=== PATIENT | female | born 1940 | race Caucasian/White ===

== ENCOUNTER 2018-04-05 08:44 | Inpatient (IN) ==
--- NOTE | 2018-03-29 09:19 | Anesthesiology Consultation ---
Date of Service March 29, 2018 Assessment & Plan (1) Encounter for pre-operative examination: Plan: PCP clearance 04/01/2018: No contraindication for planned left knee replacement, she is deemed medically stable and below average surgical risk for her age is typically in very good health. Chart Review Chart Review: Acceptable Risk for Surgery and Patient seen in Pre Admission Testing Teaching & Discussion Instructed NPO after midnight before surgery, except medications with 15 cc of water. Medication instructions provided according to the PAT guidelines. History Surgery Operation Date: 04/05/18 11:30 Proposed Procedures p Left Total Knee Arthroplasty - Oleg Bridges MD Height/Weight Height: 5 ft 1 in Weight: 62 kg Allergies Allergy/AdvReac Type Severity Reaction Status Date / Time No Known Allergies Allergy Unknown Verified 03/26/18 15:51 Medications Home Medications Medication Instructions Recorded Confirmed Last Taken Meclizine 1 dose PO UD PRN 03/26/18 03/26/18 Unknown aspirin [Aspir-81] 81 mg PO DAILY 03/26/18 03/26/18 03/23/18 cyanocobalamin (vitamin B-12) 1,000 mcg PO 3XWK 03/26/18 03/26/18 03/26/18 [Vitamin B-12] [id number]-poc-pydzpen-ast 1 cap PO DAILY 03/26/18 03/26/18 03/26/18 [krill oil] naproxen sodium [Aleve] 220 mg PO UD PRN 03/26/18 03/26/18 Unknown vit C,K-Gp-amgyu-lutein-zeaxan 1 tab PO BID 03/26/18 03/26/18 03/26/18 [PreserVision AREDS-2] Past Medical History Medical History Claustrophobia REQUESTS NO MASK OVER FACE History of vertigo Osteoarthritis Past Family History Family History Sister Family history of melanoma Daughter Family history of breast cancer Past Surgical History Surgical History History of bilateral cataract extraction History of colonoscopy with polypectomy History of total left hip arthroplasty History of total right knee replacement Past Anesthesia History No Hx of Anesthesia Complications and No Family Hx of Anesthesia Complications 2014 BRITTANY @ [facility], SAB x 2 attempts, no complications per record. History of PONV No Motion Sickness Screening History of Motion Sickness: Yes (vertigo) Social History Smoking Status: Never smoker Do You Dip or Chew Tobacco: No Hx Alcohol Use: No Hx Substance Use: No substance use type: does not use Exercise / Class Metabolic Activity III < 4 Walking/Shop/Light housework (Denies CP or SOB with ambulation, unable to do stairs 2/2 knee pain) Review of Systems Pt denies any recent chest pain, shortness of breath, palpitations, cough, fever or URI. Physical Exam Vital Signs BP: 144/73 (pt takes BP at home and and reports usually 110/70) P: 74bpm SPO2: 98% RA T: 98.0 F R: 12 ENMT Mouth: + dental bridge (lower left rear teeth); no chipped teeth and no loose teeth Thyromental Distance: > or= 3.5 Finger Breadths (4) Mallampati Class: III Neck normal visual inspection; neck extension not limited Respiratory normal respiratory effort Auscultation: lungs clear to auscultation bilaterally Cardiovascular Rate/Rhythm: regular rate and regular rhythm Heart Sounds: no murmur Vessels: no carotid bruit Extremities: no edema Testing Electrocardiogram Date: 03/29/18 Findings: + NSR @ (68) Chest X-Ray Date: 03/29/18 Hyperinflation with suspected underlying chronic interstitial lung disease. No acute findings. Laboratory Results 03/29/18 09:46 03/29/18 09:46 Blood Type O Positive 03/29/18 09:46 Antibody Screen NEGATIVE 03/29/18 09:46 PT 10.5 Seconds (9.0-12.0) 03/29/18 09:46 INR 1.0 (0.9-1.1) 03/29/18 09:46 APTT 26.8 Seconds (21.0-31.0) 03/29/18 09:46 Hemoglobin A1c 5.6 % (4.5-5.6) 03/29/18 09:46 Urine Color Yellow 03/29/18 Unknown Urine Appearance Clear (Clear) 03/29/18 Unknown Urine pH 6.5 (4.5-7.5) 03/29/18 Unknown Ur Specific [place] 1.013 (1.000-1.030) 03/29/18 Unknown Urine Protein Negative (Negative) 03/29/18 Unknown Urine Glucose (UA) Negative (Negative) 03/29/18 Unknown Urine Ketones Negative (Negative) 03/29/18 Unknown Urine Nitrite Negative (Negative) 03/29/18 Unknown Ur Leukocyte Esterase Trace (Negative) H 03/29/18 Unknown Urine WBC (Auto) 1-5 /hpf (0-5) 03/29/18 Unknown Urine RBC (Auto) 0-4 /hpf (0-4) 03/29/18 Unknown U Hyaline Cast (Auto) 0 /lpf (0-5) 03/29/18 Unknown U Epithel Cells (Auto) 5-10 /lpf (0-5) H 03/29/18 Unknown Urine Bacteria (Auto) Negative (Negative) 03/29/18 Unknown 03/29/18 09:46 Urine Culture - Final Urine,Clean Catch More than three types of organisms present, all moderate counts mixed probable skin denisse. No further identifications or sensitivities to follow.
--- NOTE | 2018-03-29 09:37 | PAT Medication Instructions ---
Medication Instructions Date of Service March 29, 2018 Home Medications Meclizine 1 dose PO UD PRN aspirin [Aspir-81] 81 mg PO DAILY cyanocobalamin (vitamin B-12) 1,000 mcg PO 3XWK krill-om-3 1 cap PO DAILY naproxen sodium [Aleve] 220 mg PO UD PRN [PreserVision AREDS-2] 1 tab PO BID ASK your surgeon for instructions naproxen sodium [Aleve] 220 mg PO UD PRN STOP taking 2 weeks before surgery krill-om-3 1 cap PO DAILY [PreserVision AREDS-2] 1 tab PO BID *If surgery is within 2 weeks, stop taking as soon as possible. DO NOT take the morning of surgery cyanocobalamin (vitamin B-12) 1,000 mcg PO 3XWK Take morning of surgery With a small sip of water, OTHERWISE NOTHING TO EAT OR DRINK AFTER MIDNIGHT: Meclizine 1 dose PO UD PRN (if needed) aspirin [Aspir-81] 81 mg PO DAILY Other Notes If you have any questions please call us at [phone] or [phone] or [phone] or [phone]
--- NOTE | 2018-03-29 10:20 | XRay Report ---
XR chest Pre-admission PA/Lat CLINICAL HISTORY: Preoperative chest COMPARISON STUDY: 03/28/2014 FINDINGS: The patient appears mildly hyperinflated. There is suspected underlying interstitial lung d isease. There is no acute parenchymal consolidation. There is no failure. There are no pleural effusi ons. IMPRESSION: Hyperinflation with suspected underlying chronic interstitial lung disease. No acute find ings Electronically signed by: Jm Bustamante M.D. 03/29/2018 10:18 AM
[2018-03-29 10:55] LABS: Basophils # (auto) 0.02 K/uL (0-0.2); Basophils % (auto) 0.5 %; Eosinophils # (auto) 0.31 K/uL (0-0.5); Eosinophils % (auto) 7.8 %; Hematocrit (blood only) 39.2 % (37-47); Hemoglobin 12.8 g/dL (12.0-16.0); Immature Granulocytes # (auto) 0.01 K/uL (0.00-0.02); Immature Granulocytes % (auto) 0.3 %; Lymphocytes # (auto) 0.72 K/uL (1.2-3.4); Mean Corpuscular Hgb Conc 32.7 g/dL (32-36); Mean Corpuscular Volume 96.1 fL (80-100); Mean Platelet Volume 11.7 fL (7.4-10.4); Monocytes # (auto) 0.28 K/uL (0.11-0.59); Neutrophils # (auto) 2.65 K/uL (1.4-6.5); Neutrophils % (auto) 66.4 %; Platelet Count 138 K/uL (130-400); RDW Coefficient of Variation 12.7 % (11.5-14.5); RDW Standard Deviation 44.2 fL (36.4-46.3); Red Blood Count 4.08 M/uL (4.2-5.4); White Blood Count 3.99 K/uL (4.8-10.8)
[2018-03-29 11:00] LABS: Estimated Average Glucose 114 mg/dl
[2018-03-29 11:02] LABS: Albumin Level 3.5 gm/dl (3.4-5.0); BUN Creatinine Ratio 25.3 (10-20); Calcium 8.9 mg/dl (8.5-10.1); Creatinine Clr Calc Pharmacy 69.9 ml/min; Est GFR (African American) 103.5; Est GFR (Non-African American) 89.3; Potassium 4.3 mmol/L (3.5-5.1)
[2018-03-29 11:19] LABS: Appearance Urine Clear (Clear); Bacteria Urine Automated Negative (Negative); Bilirubin Urine Negative (Negative); Cast Urine Automated 0 /lpf (0-5); Color Urine Yellow; Glucose Urine UA Negative (Negative); Ketones Urine Negative (Negative); Leukocyte Esterase Urine Trace (Negative); Nitrite Urine Negative (Negative); Protein Urine Negative (Negative); Specific Gravity Urine 1.013 (1.000-1.030); Urobilinogen Urine Negative (Negative); pH Urine 6.5 (4.5-7.5)
[2018-03-29 11:26] LABS: Partial Thromboplastin Time 26.8 Seconds (21.0-31.0); Prothrombin Time 10.5 Seconds (9.0-12.0)
--- NOTE | 2018-04-02 10:55 | History and Physical Report ---
DATE OF ADMISSION: 04/05/2018 CHIEF COMPLAINT: Left knee pain. HISTORY OF PRESENT ILLNESS: The patient is a 77-year-old female with known severe osteoarthritis about her left knee. She had a previous right total knee arthroplasty with good success. She continues to have ongoing pain and disability with her left knee. She has pain with prolonged weightbearing and standing activities. She has difficulty with any kneeling, bending, or squatting activities. Due to ongoing pain and disability, she now desires to proceed with left total knee arthroplasty. PAST MEDICAL HISTORY: Denies. PAST SURGICAL HISTORY: Right knee replacement, left hip replacement. MEDICATIONS: PreserVision twice daily, vitamin B12 three times weekly, low-dose aspirin daily, omega-3 Krill oil daily, Aleve as needed, meclizine as needed. ALLERGIES: No known drug allergies. SOCIAL HISTORY AND REVIEW OF SYSTEMS: Noncontributory. PHYSICAL EXAMINATION: GENERAL: Well-nourished, well-developed elderly female who appears stated age. HEENT: Normocephalic, atraumatic, extraocular movements intact, oropharynx pink and moist. NECK: Supple without adenopathy. LUNGS: Clear to auscultation bilaterally. HEART: Regular rate and rhythm. ABDOMEN: Soft, nontender, nondistended. EXTREMITIES: The upper extremities are within normal limits. The left knee has a valgus alignment. Her range of motion is from 0-130 degrees. X-RAYS: X-rays were reviewed. She has a valgus aligned knee. She has bone on bone arthritis of the lateral compartment with complete loss of the joint space. There are lateral joint line osteophytes. There is mild degenerative change about the patellofemoral joint as well. ASSESSMENT: Left knee degenerative joint disease. PLAN: Risks versus benefits were discussed, consent was obtained. The patient's primary care physician is Dr. Bowens from [facility]. Will proceed with left total knee arthroplasty as indicated.
[~2018-04-05 08:44] MED LIST: ACETAMINOPHEN 500 MG TAB PO SCH; BUPIVACAINE 0.5 % 5 MG/1 ML PF 10ML VIAL ONE; BUPIVACAINE/EPINEPHRINE 0.5% MPF 1:200,000 30 ML VIAL ONE; CEFAZOLIN 1000MG 1,000 MG/7.5 ML SYR IV SCH; CeleBREX 200 MG CAP PO SCH; DEXAMETHASONE SOD INJ 4 MG/ML VIAL ONE; EPINEPHrine INJ 1 MG/ML AMP ONE; FAMOTIDINE 20 MG TAB PO SCH; GABAPENTIN 300 MG PO SCH; ROPIVACAINE 0.5% 5 MG/ML 30 ML VIAL ONE; ROPIVACAINE 0.5% HCL/PF 150 MG, BUPIVACAINE 0.5% MPF 30 ML, EPINEPHrine 30MG/30ML (OR U... INFIL SCH; TRANEXAMIC ACID 1,000 MG **IV Intra-op IV SCH; TRANEXAMIC ACID 1,000 MG **IV Pre-op IV SCH; dexAMETHasone 4 MG TAB PO SCH
[2018-04-05] MEDS ORDERED: fentaNYL citrate 100 MCG/2 ML VIAL ONE (09:28)
[2018-04-05] MEDS ORDERED: MIDAZOLAM HCL 1 MG/ML 2ML VIAL ONE (09:28)
[2018-04-05] MEDS: LR 500ML BOLUS, THEN 15ML/HR IV SCH ×4 (09:35→18:23)
[2018-04-05] MEDS ORDERED: MEPERIDINE HCL 25 MG/ML CARP IV PRN (10:02)
[2018-04-05] MEDS ORDERED: ATROPINE SULFATE 0.1 MG/ML 10ML SYR IV PRN (10:02)
[2018-04-05] MEDS ORDERED: HYDROmorphone INJ 1 MG/ML SYRINGE IV PRN (10:02)
[2018-04-05] MEDS ORDERED: PHENYLEPHRINE 100MCG/ML 5ML SYR IV PRN (10:02)
[2018-04-05] MEDS ORDERED: LABETALOL HCL IV 5 MG/ML 20ML IV PRN (10:02)
[2018-04-05] MEDS ORDERED: fentaNYL citrate 100 MCG/2 ML VIAL IV PRN (10:02)
[2018-04-05] MEDS ORDERED: ePHEDrine sulfate 50 MG/ML AMP IV PRN (10:02)
[2018-04-05] MEDS ORDERED: ONDANSETRON INJ 2 MG/ML 2 ML VIAL IV PRN ×2 (10:02→15:26)
--- NOTE | 2018-04-05 10:12 | History & Physical Bridge Note ---
Date of Service April 05, 2018 History & Physical Bridge Note I have examined the patient, reviewed the History & Physical and in the interval since the performance of the History & Physical I have noted the following changes of clinical significance: no changes noted
[2018-04-05] MEDS ORDERED: POVIDONE-IODINE OP SOLN 30 ML BTL ONE (10:41)
[2018-04-05] MEDS ORDERED: ORTHO JOINT ANESTHETIC ONE (10:41)
[2018-04-05] MEDS ORDERED: BACITRACIN INJ 50,000 UNIT VIAL ONE (10:42)
[2018-04-05] MEDS ORDERED: LACTATED RINGER'S 1,000 ML IV SCH (11:00)
--- NOTE | 2018-04-05 11:31 | Operative Report ---
Post Operative Report Pre & Post Diagnosis DJD knee l Operation Date: 04/05/18 11:30 <No data on this case meets the specified criteria> Procedure Left total knee Operation Date: 04/05/18 11:30 <No data on this case meets the specified criteria> Surgeon Oleg Bridges MD Seating And Mobility Technologist Tk Estimated Blood Loss 100 Findings Consistent with Post-Op Diagnosis Specimens bone fragments Anesthesia Type Spinal Complications none Disposition Accompanied Patient To Recovery: No Disposition: Recovery Room Description of Procedure Patients left knee replaced. Femur size4 tibia size 3 Poly 9, patella 33. Mr Frey used for all portions of the charles. I attest to the content of the Intraoperative Record and any orders documented therein. Any exceptions are noted below.
[2018-04-05] MEDS ORDERED: PROPOFOL IV EMULSION 10 MG/ML 20 ML VIAL IV ONE (11:56)
[2018-04-05] MEDS ORDERED: LIDOCAINE HCL 2% 2 ML VIAL/AMP(20MG/ML) INFIL ONE (11:56)
[2018-04-05] MEDS ORDERED: PHENYLEPHRINE 100MCG/ML 5ML SYR ONE (13:17)
--- NOTE | 2018-04-05 13:56 | XRay Report ---
XR knee LT 2V routine CLINICAL HISTORY: 77 years-old Female presenting with post-op TKA. TECHNIQUE: Frontal and crosstable lateral views of the left knee were obtained. COMPARISON: Plain radiographs of the left femur from 2015. FINDINGS: There has been interval total left knee arthroplasty with patellar resurfacing. A surgical drain is i n place. Expected intra-articular and soft tissue emphysema. Postsurgical screw tracks noted in the t ibial plateau. Underlying osteopenia. No periprosthetic fracture. No malalignment. IMPRESSION: Expected postsurgical appearance status post total left knee arthroplasty. Electronically signed by: Valeriy Figueroa M.D. 04/05/2018 1:55 PM
--- NOTE | 2018-04-05 14:19 | Anesthesiology Progress Note ---
Date of Service April 05, 2018 Anesthesia Post Procedure Vital Signs Vital Signs: Temp Pulse Pulse Resp BP BP Pulse Ox 04/05/18 13:40 71 13 113/53 L 97 04/05/18 13:35 75 16 112/56 L 98 04/05/18 13:31 75 14 97 04/05/18 13:30 76 15 120/61 98 04/05/18 13:26 79 14 120/61 96 04/05/18 13:25 82 25 H 98 04/05/18 13:23 85 18 117/62 97 04/05/18 13:22 87 15 94 04/05/18 09:23 36.8 C 84 22 149/85 H 97 Notes Mental Status: alert / awake / arousable Patient Amnestic to Procedure: Yes Nausea / Vomiting: adequately controlled Pain: adequately controlled Airway Patency, RR, SpO2: stable & adequate BP & HR: stable & adequate Hydration State: stable & adequate Neuraxial Anesthesia: was administered and sensory block is resolving Anesthetic Complications: no major complications apparent and Pt Satisfied with anesthetic care
[2018-04-05] MEDS ORDERED: OXYCODONE HCL IR 5 MG TAB (IMMEDIATE RELEASE) PO PRN (15:26)
[2018-04-05] MEDS ORDERED: METOCLOPRAMIDE HCL INJ 5 MG/ML 2 ML VIAL IV PRN (15:26)
[2018-04-05] MEDS ORDERED: NALOXONE HCL 0.4 MG/1 ML VIAL/CARP IV PRN (15:26)
[2018-04-05] MEDS ORDERED: SODIUM CHLORIDE 0.9% 1000ML 1,000 ML IV SCH (15:26)
[2018-04-05] MEDS ORDERED: ALUMINUM/MAGNESIUM SUSP 30 ML UDC PO PRN (15:26)
[2018-04-05] MEDS ORDERED: MAGNESIUM HYDROXIDE SUSP 30 ML UDC PO PRN (15:26)
[2018-04-05] MEDS ORDERED: BISACODYL 10 MG SUPP PR PRN (15:26)
[2018-04-05] MEDS ORDERED: HYDROmorphone INJ 0.5 MG/0.5 ML SYR IV PRN (15:26)
[2018-04-05] MEDS: CEFAZOLIN 1000MG 1,000 MG/7.5 ML SYR IV SCH ×2 (17:13→23:31)
[2018-04-05] MEDS: KETOROLAC TROMETHAMINE 15 MG/ML VIAL IV SCH ×2 (17:13→21:53)
[2018-04-05] MEDS: ASCORBIC ACID 500 MG TAB PO SCH (17:14)
[2018-04-05] MEDS: FERROUS GLUCONATE 324 MG TAB PO SCH (17:14)
[2018-04-05] MEDS: ACETAMINOPHEN 500 MG TAB PO SCH (19:37)
[2018-04-05] MEDS: SENNA 8.6 MG TAB PO SCH ×2 (21:51→22:00)
[2018-04-05] MEDS: DOCUSATE SODIUM 100 MG CAP PO SCH (21:51)
[2018-04-05] MEDS: ASPIRIN 81 MG ECTAB PO SCH (21:51)
[2018-04-06] MEDS: KETOROLAC TROMETHAMINE 15 MG/ML VIAL IV SCH ×2 (04:57→10:25)
[2018-04-06] MEDS: ACETAMINOPHEN 500 MG TAB PO SCH ×3 (05:01→21:28)
[2018-04-06 06:05] LABS: Mean Corpuscular Hgb Conc 33.3 g/dL (32-36); Mean Platelet Volume 11.4 fL (7.4-10.4); Platelet Count 127 K/uL (130-400); RDW Coefficient of Variation 12.5 % (11.5-14.5); Red Blood Count 3.51 M/uL (4.2-5.4); White Blood Count 10.66 K/uL (4.8-10.8)
[2018-04-06 06:36] LABS: BUN Creatinine Ratio 28.1 (10-20); Calcium 8.1 mg/dl (8.5-10.1); Creatinine Clr Calc Pharmacy 51.4 ml/min; Est GFR (African American) 88.5; Est GFR (Non-African American) 76.3
--- NOTE | 2018-04-06 07:07 | Orthopedic Progress Note ---
Date of Service April 06, 2018 Assessment & Plan (1) Status post left knee replacement: 77 yo female stable POD #1 s/p left TKA 1. Med management 2. DVT prophylaxis- ASA, SCDs 3. PT/OT 4. D/C planning- home w/ HH Subjective Pt resting in bed, pain controlled, denies complaints Physical Exam 2 Vital Signs (Past 24 Hours): Last Vital Signs Temp 36.6 C 04/06/18 07:00 Pulse 69 04/06/18 07:00 Resp 18 04/06/18 07:00 BP 122/71 04/06/18 07:00 Pulse Ox 99 04/06/18 07:00 Physical Exam: Toes mobile, N/V/I, dressing and drain in place Results & Data Laboratory Results 04/06/18 04/06/18 Range/Units 05:54 05:54 WBC 10.66 (4.8-10.8) K/uL RBC 3.51 L (4.2-5.4) M/uL Hgb 11.0 L (12.0-16.0) g/dL Hct 33.0 L (37-47) % MCV 94.0 (80-100) fL MCH 31.3 (25-34) pg MCHC 33.3 (32-36) g/dL RDW Std Deviation 42.0 (36.4-46.3) fL RDW Coeff of Constantine 12.5 (11.5-14.5) % Plt Count 127 L (130-400) K/uL MPV 11.4 H (7.4-10.4) fL Sodium 141 (136-145) mmol/L Potassium 4.0 (3.5-5.1) mmol/L Chloride 108 H (98-107) mmol/L Carbon Dioxide 26 (21-32) mmol/L Anion Gap 6.0 (3-11) BUN 21 H (7-18) mg/dl Creatinine 0.75 (0.6-1.2) mg/dl Est Cr Clr Drug Dosing 51.4 ml/min Est GFR ( Amer) 88.5 Est GFR (Non-Af Amer) 76.3 BUN/Creatinine Ratio 28.1 H (10-20) Glucose 122 H (70-99) mg/dl Calcium 8.1 L (8.5-10.1) mg/dl
[2018-04-06] MEDS ORDERED: dexAMETHasone 10 MG in SYRINGE 0 ML IV SCH (08:00)
[2018-04-06] MEDS: ASPIRIN 81 MG ECTAB PO SCH ×2 (08:36→20:43)
[2018-04-06] MEDS: FERROUS GLUCONATE 324 MG TAB PO SCH ×2 (08:36→17:14)
[2018-04-06] MEDS: DOCUSATE SODIUM 100 MG CAP PO SCH ×2 (08:36→20:43)
[2018-04-06] MEDS: MULTIVITAMIN TAB PO SCH (08:37)
[2018-04-06] MEDS: ASCORBIC ACID 500 MG TAB PO SCH ×2 (08:37→17:14)
[2018-04-06] MEDS: SENNA 8.6 MG TAB PO SCH (20:44)
[2018-04-07] MEDS: ACETAMINOPHEN 500 MG TAB PO SCH (05:31)
--- NOTE | 2018-04-07 07:07 | Orthopedic Progress Note ---
Date of Service April 07, 2018 Assessment & Plan (1) Status post left knee replacement: 77 yo female stable POD #2 s/p left TKA 1. Med management 2. DVT prophylaxis- ASA, SCDs 3. PT/OT 4. D/C planning- home w/ HH Subjective Pt resting in bed, pain controlled, denies complaints Physical Exam 2 Vital Signs (Past 24 Hours): Last Vital Signs Temp 36.9 C 04/07/18 06:18 Pulse 81 04/07/18 06:18 Resp 18 04/07/18 06:18 BP 122/76 04/07/18 06:18 Pulse Ox 98 04/07/18 06:18 Physical Exam: Toes mobile, N/V/I, Silverlon dressing in place
[2018-04-07] MEDS: MULTIVITAMIN TAB PO SCH (07:34)
[2018-04-07] MEDS: DOCUSATE SODIUM 100 MG CAP PO SCH (07:35)
[2018-04-07] MEDS: ASCORBIC ACID 500 MG TAB PO SCH (07:35)
[2018-04-07] MEDS: FERROUS GLUCONATE 324 MG TAB PO SCH (07:35)
[2018-04-07] MEDS: ASPIRIN 81 MG ECTAB PO SCH (07:35)
[2018-04-07] MEDS ORDERED: CYANOCOBALAMIN 500 MCG TABLET (VITAMIN B-12) PO SCH (09:00)
--- NOTE | 2018-04-07 10:50 | Operative Report ---
DATE OF OPERATION: 04/05/2018 PREOPERATIVE DIAGNOSIS: Osteoarthritis left knee. POSTOPERATIVE DIAGNOSIS: Osteoarthritis left knee. PROCEDURE: Left total knee arthroplasty. SURGEON: Dr. Bridges. INTERLINE CLERK: Emilio Frey PA-C. ANESTHESIA: Spinal. COMPLICATIONS: None. OPERATION AND FINDINGS: Following induction of spinal anesthesia, the patient's left leg was prepped and draped in the usual sterile manner. Limb was exsanguinated with an Esmarch bandage and tourniquet was inflated to 350 mmHg. A longitudinal incision was made anteriorly. Subcutaneous tissue was sharply dissected. Electrocautery was used for hemostasis. Prepatellar bursa was incised and median parapatellar incision was performed. Patella was everted and the knee was flexed. Fat pad was removed to aid in visualization and the anterior and posterior cruciate ligaments were removed. The medial face of the tibia was cleared of soft tissue first with a Bovie and a Branch elevator. This tissue was retracted posteriorly using a blunt Hohmann. A Guzman retractor was used to expose the synovium above on the anterior aspect of the femur and this was removed down to bone. The PSI guide was placed on the distal femur and two pins were placed anteriorly and kept in position and two additional pins were placed distally and removed. The distal femoral cutting block was placed in position and the distal femoral cut was used in the +0 setting. Next, the cutting block was removed and the femoral size 4 block was placed in the distal end of the femur. Care was taken to ensure appropriate external rotation and feeler gauge was used to ensure no notching would occur. The femoral block was centered on the distal femur and in the medial and lateral direction and was fixed using two bone screws. The gold pins were then removed. The oscillating saw was used to create the bone cuts and the distal femoral cutting block was removed and the reciprocating saw was used to further trim the femoral cuts as well as a deep in the area for the trochlear groove. Next, posterior condyle remnants were removed. Following this, a meniscal clamp and knife were utilized to remove the anterior portion of both medial and lateral meniscus. The proximal tibia PSI guide was placed into position and the proximal tibial cutting guide was screwed into position. The extra medullary alignment guide was utilized to ensure appropriate alignment. The proximal tibia was cut and the proximal tibial cutting block was removed and this bone fragment was removed. The appropriate guide was used to perform the notch cut on the distal femur and a lamina demographic analyst and a cochlear knife were utilized to finish both medial and lateral meniscectomies to remove any remnants of the posterior or anterior cruciate ligaments. Following this, the distal femoral component was impacted into position and blunt Vamsi was used to sublux the tibia anteriorly. The proximal tibia was sized and a tibial size 3 tibial tray was chosen as the size to be used. This was put into position and appropriate external rotation and a double check with extramedullary alignment guide was performed. The canal for the tibial stem was prepared first with a 17 mm drill and then the punch and a mallet and the trial tibial poly was placed. A tibial poly 9 was chosen the size to be used. It was brought to extension and the patella was prepared with the patellar reamer. A patella size 33 component was chosen the size to be used. The trial component was placed and knee was taken through a full range of motion and there was found to be no lateral subluxation of the tibia. No lateral release was required. The trials were all removed. The final components were obtained and assembled. Cement was mixed. The knee was thoroughly irrigated and the ortho mix was injected about the knee joint. The final components were cemented into position. After thoroughly suctioning and drying the bone ends, all excess cement was removed. The knee was held in extension while the cement hardened. The wound was irrigated and closed over a Hemovac drain. #1 Vicryl was used to close the extensor mechanism. Subcutaneous tissues closed using 0 Dexon. Skin was closed with toby. Sterile dressing of Adaptic, 4 x 4's, sterile Webril, and Aleksandr was applied. The patient tolerated the procedure well. Due to the complex nature of the procedure, the entire surgery was performed with the operational assistance of Emilio Frey PA-C. The assistant executive housekeeper, under direct supervision, was involved in the actual performance of all aspects of the surgical procedure including hemostasis, tissue retraction and incision, instrument management, patient positioning, and wound closure. DISPOSITION: Recovery room, stable. I attest to the content of the Intraoperative Record and any orders documented therein. Any exception s are noted below.
--- NOTE | 2018-04-30 11:47 | Discharge Summary ---
CHIEF COMPLAINT: Left knee pain. Please see complete history and physical examination. HOSPITAL COURSE: The patient underwent left total knee arthroplasty without complication. She tolerated the procedure well and discharged to recovery room in stable condition. Her postop course was relatively uneventful. Her postoperative pain was reasonably well controlled with a combination of spinal anesthesia, intraoperative joint injection, adductor canal block, IV, and oral pain medications. She was started on aspirin for DVT prophylaxis. She also utilized RACHEL stockings and SCDs for additional prophylaxis. Her H and H was stable and did not require transfusion. Her surgical drain was discontinued prior to discharge. Her surgical dressing was changed prior to discharge and will remain in place for approximately 7 days postoperative. She tolerated postop physical therapy reasonably well as she was ambulating and transferring appropriately. She was discharged home on postoperative day 2. She will continue her physical therapy at home. She will continue her aspirin for DVT prophylaxis and follow up in our office in approximately 10-14 days for initial postop evaluation.
== END 2018-04-07 10:29 | disposition home health service (06) | DRG 470 ==
LOC: ASU 08:44 → 3E 13:25